=== PATIENT | male | born 1990 | race Caucasian/White ===

== ENCOUNTER 2023-05-10 21:20 | Emergency (ER) | payer SELFPAY ==
[2023-05-10 21:22] VITALS: BP 118/74; PULSE 89; RESP 18; TEMP 36.7; O2SAT 97; BMI 24.6
--- NOTE | 2023-05-10 22:37 | EDS_ITS ---
HPI History of Present Illness Chief Complaint: Rash Narrative Narrative: 33-year old male presenting with rash. He states he noted his on his right arm and left arm. Its been going on since Sunday. It is circular in nature. He states initially it was just 1 on the left arm and then he had 1 on the right arm. Noted this on his chest. Its not itchy. Its not painful. Patient notes he has had a mild headache for couple days but he states he gets better with ibuprofen. He states he has been in a swimming pool at a pool constitution party and also swim in a [place] he was walking on the toe bath recently this week as well. He does not know if he has had any tick bites or insect bites. He has not had a fever. He does not have any nausea or vomiting. He is eating and drinking normally. [facility] Medical History Contact with and (suspected) exposure to other viral communicable diseases Neurodermatitis URI (upper respiratory infection) Home Medications doxycycline hyclate 100 mg capsule 100 mg PO BID #20 caps 05/11/23 [Rx Last Taken Unknown] Allergy/AdvReac Type Severity Reaction Status Date / Time grass pollen-perennial rye, Allergy Intermediate Other Verified 05/10/23 21:25 standar Family History Other Diabetes Surgical History History of inguinal hernia repair History of nasal septoplasty History of surgery on lower extremity Social History Smoking Status: Light Smoker (<10/day) ROS ROS ED Constitutional Constitutional ED: Denies chills, fever(s) or sweats Eyes Eyes: Denies blurry vision or change in vision ENT ENT ED: Denies ear pain or sore throat Cardiovascular Cardiovascular: Denies chest pain, palpitations or racing heartbeat Respiratory/Chest Respiratory/Chest: Denies cough, dyspnea or sputum Gastrointestinal Gastrointestinal: Denies abdominal pain, constipation, diarrhea, nausea or vomiting Genitourinary Genitourinary ED: Denies dysuria, hematuria or urinary frequency Musculoskeletal Musculoskeletal: Denies arthralgias, myalgias or neck pain Integumentary Reports rash; Denies abscess or Abrasions Neurologic Neurologic: Reports headache(s); Denies paresthesias or weakness Psychiatric Psychiatric: Denies anxiety, depression, suicidal ideation or suicidal thoughts Endocrine Endocrinology: Denies polydipsia or polyuria EXAM Physical Exam Const Vital Signs: 05/10/23 21:22 Temperature 98.0 F Temperature Source Temporal Pulse Rate 89 Respiratory Rate 18 Blood Pressure 118/74 Blood Pressure Mean 88 Pulse Ox 97 Oxygen Delivery Method Room Air Positive well nourished General Appearance ED: NAD HEENT Reports moist mucous membranes Eyes PERRL Neck no lymphadenopathy Resp normal respiratory effort and clear to auscultation bilaterally Cardio regular rate and regular rhythm GI normal to inspection, nondistended, normoactive bowel sounds Neuro oriented x3 and CN's II-XII intact bilaterally Sensorium / Orientation: alert Motor Exam: strength 5/5 throughout Psych mental status grossly normal Skin Skin Narrative: Circular hive-like rash noted on the upper right chest wall, right arm over the biceps and left arm over the forearm. Nontender. No induration. No warmth. MDM MDM MDM Narrative Medical decision making narrative: Patient presenting with rash which does look somewhat urticarial although its not pruritic in nature and its not tender. Is no evidence of cellulitis. There is some concern for tickborne illness given the patient's mild headache and fatigue. I did obtain lab work and a CBC and CMP are unremarkable. Given patient's concern I will start him on a course of doxycycline. Return precautions were discussed. Impression: 1. Dermatitis Lab Data Labs: Laboratory Results - last 24 hr 05/10/23 22:41 WBC 7.3 RBC 4.56 L Hgb 13.6 Hct 41.0 MCV 89.9 MCH 29.8 MCHC 33.2 RDW Std Deviation 41.0 RDW Coeff of Benedicto 12.3 Plt Count 358 MPV 9.8 Immature Gran % (Auto) 0.300 Neut % (Auto) 72.9 H Lymph % (Auto) 15.0 L Navarro % (Auto) 9.7 Eos % (Auto) 1.8 Baso % (Auto) 0.3 Absolute Neuts (auto) 5.4 Absolute Lymphs (auto) 1.10 Nucleated RBC % 0 Sodium 139 Potassium 3.4 L Chloride 105 Carbon Dioxide 28.0 Anion Gap 6 BUN 19 H Creatinine 1.22 Estim Creat Clear Calc 92.76 Est GFR (MDRD) Af Amer 87 Est GFR (MDRD) Non-Af 72 BUN/Creatinine Ratio 15.6 Glucose 92 Calcium 8.9 Total Bilirubin 0.30 AST 15 ALT 30 Alkaline Phosphatase 96 Total Protein 7.6 Albumin 3.6 Globulin 4.0 Albumin/Globulin Ratio 0.9 Discharge Plan Triage Chief Complaint: Rash ED Provider: Glenn Cuevas Dx/Rx/DC Orders Instructions: ED Erythema Prescriptions: New doxycycline hyclate 100 mg capsule 100 mg PO BID Qty: 20 0RF Primary Care Provider: Care Physician,No Primary Referrals: Care Physician,No Primary [Primary Care Provider] - Disposition Disposition: Home, Self Care
[2023-05-10 22:47] LABS: Hemoglobin 13.6 g/dL (13.0-16.5); Mean Corp Hgb Conc 33.2 g/dL (32-36); Mean Corpuscular Hgb 29.8 pg (27.0-32.0); Mean Corpuscular Volume 89.9 fL (80-94); Platelet Count 358 K/mm3 (150-450); RBC Distribution Width CV 12.3 % (11.6-14.6); Red Blood Count 4.56 M/mm3 (4.6-6.2); White Blood Count 7.3 K/mm3 (4.4-11.0)
[2023-05-10 22:48] LABS: Absolute Neutrophil Count 5.4 X10^3/uL (2.0-7.7); Basophil# 0.02 X10^3/uL; Basophil% 0.3 % (0-1); Eosinophil# 0.13 X10^3/uL; Eosinophils% 1.8 % (0-5); Mean Platelet Vol. 9.8 fl (6.2-12.0); Monocyte# 0.71 X10^3/uL; Monocyte% 9.7 % (0-10); NRBC Flagged by Analyzer 0 % (0-5); Neutrophil # 5.35 X10^3/uL (2.7-7.7); Neutrophil % 72.9 % (47-70)
[2023-05-10 23:10] LABS: ALB/GLOB Ratio 0.9 RATIO (0.9-2.4); AST(SGOT) 15 U/L (15-37); Alanine Aminotransfer ALT/SGPT 30 U/L (16-61); Albumin, Serum 3.6 g/dL (3.2-5.0); Alkaline Phosphatase 96 U/L (45-117); Anion Gap 6 (5-15); BUN 19 mg/dL (7-18); BUN/Creat Ratio 15.6 RATIO (10-20); Calcium,Total 8.9 mg/dL (8.5-10.1); Chloride 105 mmol/L (98-107); Creatinine, Serum 1.22 mg/dL (0.70-1.30); EST Glomerular Filtration Rate 72 mL/min (>60); Est Glom Filt Rate - Afr Amer 87 mL/min (>60); Estimated Creatinine Clearance 92.76 ml/min; Glucose 92 mg/dL (74-106); Potassium 3.4 mmol/L (3.5-5.1); Protein, Total 7.6 g/dL (6.4-8.2); Sodium Level 139 mmol/L (136-145)
[2023-05-11] MEDS: Doxycycline 100 MG CAPSULE PO (01:33)
== END 2023-05-11 01:37 | disposition home or self-care (01) ==
PROVIDERS: Emergency Provider Student in an Organized Health Care Education/Training Program; Visit Provider Student in an Organized Health Care Education/Training Program
DX: L30.9 Dermatitis, unspecified (principal); F17.200 Nicotine dependence, unspecified, uncomplicated
CPT/HCPCS: 80053; 85025; 99284

== ENCOUNTER → 2023-11-26 | Outpatient (CLI) | payer SELFPAY ==
--- NOTE | 2023-11-26 14:45 | MRI_ITS ---
STUDY: MRI LUMBAR SPINE WITHOUT CONTRAST REASON FOR EXAM: Male, 33 years old. pain, lbp, hips and leg pain TECHNIQUE: Standardized fat and water weighted pulse sequences were obtained in the sagittal and axial planes. COMPARISON: Lumbar spine radiograph November 19, 2023 FINDINGS: T12-L1: Normal endplates. Normal disc height, hydration and morphology. Normal bilateral facet joints. Normal central canal and bilateral lateral recesses. Normal bilateral intervertebral neural foramina. Normal lumbar lordosis. There is no substantial scoliosis. Normal conus medullaris that terminates at the L1-2. L1-2: Normal endplates. Normal disc height, hydration and morphology. Normal bilateral facet joints. Normal central canal and bilateral lateral recesses. Normal bilateral intervertebral neural foramina. L2-3: Normal endplates. Normal disc height, hydration and morphology. Normal bilateral facet joints. Normal central canal and bilateral lateral recesses. Normal bilateral intervertebral neural foramina. L3-4: Normal endplates. Normal disc height, hydration and morphology. Normal bilateral facet joints. Normal central canal and bilateral lateral recesses. Normal bilateral intervertebral neural foramina. L4-5: Moderate broad-based posterior disc protrusion causing moderate narrowing of the neural foramina and trefoil type narrowing of the thecal sac. L5-S1: Normal endplates. Normal disc height, hydration and morphology. Normal bilateral facet joints. Normal central canal and bilateral lateral recesses. Normal bilateral intervertebral neural foramina. Normal visualized sacral ala. Normal visualized paraspinous soft tissue structures. MRI/Spine Lumbar (Routine) IMPRESSION: Moderate disc protrusion and bilateral neural foraminal narrowing at L4-5 Electronically Signed: Wilman Jacques MD at 23:34 EST ,
== END | disposition home or self-care (01) ==
LOC: MRI 14:24
PROVIDERS: PCP Orthopaedic Surgery; Referring Provider Orthopaedic Surgery; Visit Provider Orthopaedic Surgery
DX: M51.26 Other intervertebral disc displacement, lumbar region (principal)
CPT/HCPCS: 72148

== ENCOUNTER 2024-04-01 13:51 | Emergency (ER) | payer SELFPAY ==
[2024-04-01 13:51] VITALS: BP 128/80; PULSE 68; RESP 14; TEMP 36.6; O2SAT 99; BMI 24.1
--- NOTE | 2024-04-01 14:13 | CT_ITS ---
STUDY: CT ABDOMEN AND PELVIS WITHOUT CONTRAST REASON FOR EXAM: Male, 34 years old. Left flank pain. History of prior inguinal hernia repair. RADIATION DOSAGE (If Supplied By Facility): CTDIvol = ( 7.31 ) mGy, DLP = ( 397.84 ) mGycm TECHNIQUE: Transaxial images were obtained from the dome of the diaphragm to the symphysis pubis without oral contrast, and without intravenous contrast. Sagittal and coronal images were reconstructed. Individualized dose optimization techniques were used for this CT. COMPARISON: None. FINDINGS: The visualized lung bases are unremarkable. The visualized portions of the heart are within normal limits. Normal liver. Normal gallbladder and extrahepatic biliary system. Normal spleen. There is a 6.2 mm calcification in the head of the pancreas. Normal bilateral adrenal glands. 1.5 mm calculus in the midpole calyx of the right kidney. There is a punctate calculus in the midpole calyx of the left kidney. Normal visualized stomach. Normal small intestine. Normal colon. The appendix is visualized and appears normal. Normal abdominal aorta. Normal inferior vena cava. Normal retroperitoneum. Normal urinary bladder. Normal abdominal wall. Loss of the normal lumbar lordosis. CT/Abdomen/Pelvis without Cont IMPRESSION: Tiny bilateral nonobstructive intrarenal calculi. Focal calcification in the head of the pancreas. Electronically Signed: Jasiel Haney MD at 15:06 EDT ,
[2024-04-01 14:30] LABS: Absolute Lymphocyte Count 1.12 X10^3/uL (0.83-4.51); Absolute Neutrophil Count 5.3 X10^3/uL (2.0-7.7); Basophil# 0.04 X10^3/uL; Basophil% 0.6 % (0-1); Eosinophil# 0.08 X10^3/uL; Eosinophils% 1.1 % (0-5); Hematocrit 41.6 % (40-54); Hemoglobin 13.9 g/dL (13.0-16.5); Lymphocyte # 1.12 X10^3/ul (0.83-4.51); Lymphocyte % 15.5 % (19-41); Mean Corp Hgb Conc 33.4 g/dL (32-36); Mean Corpuscular Hgb 29.3 pg (27.0-32.0); Mean Corpuscular Volume 87.8 fL (80-94); Mean Platelet Vol. 10.3 fl (6.2-12.0); Monocyte# 0.63 X10^3/uL; Monocyte% 8.7 % (0-10); NRBC Flagged by Analyzer 0 % (0-5); Neutrophil # 5.33 X10^3/uL (2.7-7.7); Neutrophil % 73.8 % (47-70); Platelet Count 279 K/mm3 (150-450); RBC Distribution Width CV 12.5 % (11.6-14.6); RBC Distribution Width SD 40.2 fl (35.1-43.9); Red Blood Count 4.74 M/mm3 (4.6-6.2); White Blood Count 7.2 K/mm3 (4.4-11.0)
[2024-04-01 14:45] LABS: Anion Gap 6 (5-15); BUN 20 mg/dL (7-18); BUN/Creat Ratio 17.2 RATIO (10-20); Calcium,Total 8.9 mg/dL (8.5-10.1); Chloride 103 mmol/L (98-107); Creatinine, Serum 1.16 mg/dL (0.70-1.30); EST Glomerular Filtration Rate 76 mL/min (>60); Est Glom Filt Rate - Afr Amer 92 mL/min (>60); Estimated Creatinine Clearance 96.63 ml/min; Glucose 86 mg/dL (74-106); Potassium 3.7 mmol/L (3.5-5.1); Sodium Level 136 mmol/L (136-145)
[2024-04-01 15:51] VITALS: BP 128/79; PULSE 64; RESP 18; O2SAT 98
--- NOTE | 2024-04-01 16:10 | EDS_ITS ---
HPI History of Present Illness Chief Complaint: Flank Pain [facility] Medical History (Updated 04/01/24 @ 16:[address] Ami Villarreal MD) Hematuria Left upper quadrant pain Mid back pain on left side Contact with and (suspected) exposure to other viral communicable diseases URI (upper respiratory infection) Neurodermatitis Home Medications ?Medication ?Instructions ?Recorded ?Last Taken ?Type hydrocodone-acetaminophen 5-325mg 1 tab PO Q6H PRN PRN Pain 3 days 04/01/24 Unknown Rx 5mg-325mg #10 TABLETS hydrocortisone 2.5 % topical cream applic topical TID PRN 04/01/24 Unknown History prednisone 20 mg tablet mg PO 04/01/24 Unknown History Allergy/AdvReac Type Severity Reaction Status Date / Time grass pollen-perennial rye, Allergy Intermediate Other Verified 04/01/24 13:52 standar Family History Other Diabetes Surgical History History of surgery on lower extremity History of nasal septoplasty History of inguinal hernia repair Social History Smoking Status: Light Smoker (<10/day) EXAM Physical Exam Const Vital Signs: 04/01/24 13:51 04/01/24 15:51 Temperature 98 F Temperature Source Temporal Pulse Rate 68 64 Respiratory Rate 14 18 Blood Pressure 128/80 H 128/79 H Blood Pressure Mean 96 95 Pulse Ox 99 98 Oxygen Delivery Method Room Air Room Air [facility] Lab Data Labs: Laboratory Results - last 24 hr 04/01/24 14:20 WBC 7.2 RBC 4.74 Hgb 13.9 Hct 41.6 MCV 87.8 MCH 29.3 MCHC 33.4 RDW Std Deviation 40.2 RDW Coeff of Benedicto 12.5 Plt Count 279 MPV 10.3 Immature Gran % (Auto) 0.300 Neut % (Auto) 73.8 H Lymph % (Auto) 15.5 L Sibley % (Auto) 8.7 Eos % (Auto) 1.1 Baso % (Auto) 0.6 Absolute Neuts (auto) 5.3 Absolute Lymphs (auto) 1.12 Nucleated RBC % 0 Sodium 136 Potassium 3.7 Chloride 103 Carbon Dioxide 27.0 Anion Gap 6 BUN 20 H Creatinine 1.16 Estim Creat Clear Calc 96.63 Est GFR (MDRD) Af Amer 92 Est GFR (MDRD) Non-Af 76 BUN/Creatinine Ratio 17.2 Glucose 86 Calcium 8.9 Radiography Diagnostic Testing: Clinical Impression(s) from Imaging Studies Abdomen/Pelvis CT 04/01/24 14:13 IMPRESSION: Tiny bilateral nonobstructive intrarenal calculi. Focal calcification in the head of the pancreas. Electronically Signed: Jasiel Haney MD at 15:06 EDT , Discharge Plan Triage Chief Complaint: Flank Pain ED Provider: Ami Villarreal Dx/Rx/DC Orders Clinical Impression: Shingles Instructions: ED Shingles (Herpes Zoster) Prescriptions: New hydrocodone-acetaminophen 5-325 mg tablet 1 tab PO Q6H PRN PRN (Reason: Pain) 3 Days Qty: 10 0RF No Action hydrocortisone 2.5 % cream topical TID PRN prednisone 20 mg tablet PO Primary Care Provider: Care Physician,No Primary Referrals: Carson Vides DO [Med Staff - Inspector Repairer] - 1-2 Weeks Care Physician,No Primary [Primary Care Provider] - Print Language: Lithuanian Disposition Disposition: Home, Self Care
[2024-04-01 16:20] VITALS: BP 131/76; PULSE 64; RESP 18; TEMP 36.4; O2SAT 99
== END 2024-04-01 16:21 | disposition home or self-care (01) ==
PROVIDERS: Emergency Provider Emergency Medicine; Visit Provider Emergency Medicine
DX: B02.9 Zoster without complications (principal); F17.200 Nicotine dependence, unspecified, uncomplicated
CPT/HCPCS: 74176; 80048; 85025; 99283

== ENCOUNTER → 2024-04-01 | Outpatient (CLI) | payer SELFPAY ==
[2024-04-01 17:48] LABS: Bacteria 0 SEEN /hpf (None Seen); Mucous, Urine 0 SEEN /hpf (<or=2+); Squamous Epithelial Cells - UA 0 SEEN /hpf (0-5); White Blood Cells 0 SEEN /hpf (0-5)
[2024-04-01 17:59] LABS: Color, Urine Yellow (Yellow); Glucose, Dipstick Normal (Normal); Ketone-Dipstick Negative (Negative); Leukocyte Esterase-Dipstick Negative /ul (Negative); Nitrite-Dipstick Negative (Negative); Occult Blood-Urine 150 /ul (Negative); Protein-Dipstick 15 mg/dl (Negative); Specific Gravity, Urine 1.015 (1.002-1.030); Urine Bilirubin Dipstick Negative (Negative); Urine Clarity Clear (Clear); Urine Urobilinogen Normal (Normal)
[2024-04-01 18:10] LABS: Red Blood Cells-Urine 0-5 SEEN /hpf (0-5)
== END | disposition home or self-care (01) ==
PROVIDERS: Visit Provider Physician Assistant
DX: R30.0 Dysuria (principal)
CPT/HCPCS: 81001; 87086

== ENCOUNTER → 2024-07-18 | Outpatient (CLI) | payer SELFPAY ==
[2024-07-18 14:24] LABS: Squamous Epithelial Cells - UA 0 SEEN /hpf (0-5); White Blood Cells 0 SEEN /hpf (0-5)
[2024-07-18 16:26] LABS: Absolute Lymphocyte Count 0.95 X10^3/uL (0.83-4.51); Absolute Neutrophil Count 4.7 X10^3/uL (2.0-7.7); Basophil# 0.04 X10^3/uL; Basophil% 0.6 % (0-1); Eosinophil# 0.19 X10^3/uL; Eosinophils% 2.9 % (0-5); Hematocrit 42.2 % (40-54); Hemoglobin 14.2 g/dL (13.0-16.5); Lymphocyte # 0.95 X10^3/ul (0.83-4.51); Lymphocyte % 14.7 % (19-41); Mean Corp Hgb Conc 33.6 g/dL (32-36); Mean Corpuscular Hgb 30.5 pg (27.0-32.0); Mean Corpuscular Volume 90.6 fL (80-94); Mean Platelet Vol. 10.9 fl (6.2-12.0); Monocyte# 0.55 X10^3/uL; Monocyte% 8.5 % (0-10); NRBC Flagged by Analyzer 0 % (0-5); Neutrophil # 4.73 X10^3/uL (2.7-7.7); Platelet Count 311 K/mm3 (150-450); RBC Distribution Width CV 13.1 % (11.6-14.6); RBC Distribution Width SD 42.7 fl (35.1-43.9); Red Blood Count 4.66 M/mm3 (4.6-6.2); White Blood Count 6.5 K/mm3 (4.4-11.0)
[2024-07-18 16:34] LABS: Color, Urine Yellow (Yellow); Glucose, Dipstick Normal (Normal); Ketone-Dipstick Negative (Negative); Leukocyte Esterase-Dipstick Negative /ul (Negative); Nitrite-Dipstick Negative (Negative); Occult Blood-Urine 50 /ul (Negative); Protein-Dipstick Negative (Negative); Urine Bilirubin Dipstick Negative (Negative); Urine Clarity Sl. Cloudy (Clear); Urine Urobilinogen Normal (Normal)
[2024-07-18 16:41] LABS: Bacteria 1+ /hpf (None Seen); Mucous, Urine 1+ /hpf (<or=2+); Red Blood Cells-Urine 0-5 SEEN /hpf (0-5)
[2024-07-18 16:50] LABS: ALB/GLOB Ratio 1.2 RATIO (0.9-2.4); AST(SGOT) 16 U/L (15-37); Alanine Aminotransfer ALT/SGPT 29 U/L (16-61); Albumin, Serum 4.2 g/dL (3.2-5.0); Alkaline Phosphatase 76 U/L (45-117); Anion Gap 9 (5-15); BUN 13 mg/dL (7-18); BUN/Creat Ratio 11.4 RATIO (10-20); Calcium,Total 9.6 mg/dL (8.5-10.1); Chloride 107 mmol/L (98-107); Cholesterol 225 mg/dL (200); Creatinine, Serum 1.14 mg/dL (0.70-1.30); EST Glomerular Filtration Rate 77 mL/min (>60); Est Glom Filt Rate - Afr Amer 93 mL/min (>60); Ferritin 267 ng/mL (26-388); Globulin 3.5 g/dL (2.2-4.2); Glucose 86 mg/dL (74-106); High Density Lipoprotein 50 mg/dL; Iron 88 ug/dL (65-175); Iron Binding Capacity,Total 345 ug/dL (250-450); PSA,Total - Annual Screen 0.86 ng/mL (0.00-4.00); Potassium 3.9 mmol/L (3.5-5.1); Protein, Total 7.7 g/dL (6.4-8.2); Sodium Level 141 mmol/L (136-145); T4 Free Direct 1.06 ng/dL (0.76-1.46); Thyroid Stim Hormone (TSH) 0.599 uIU/mL (0.358-3.740); Triglycerides 187 mg/dL; Very Low Density Lipoprotein 37 mg/dL (5-40)
[2024-07-18 16:51] LABS: Hemoglobin A1c 5.3 % (3.8-5.6)
[2024-07-25 04:08] LABS: Beef <0.10 kU/L (Class 0); Chocolate <0.10 kU/L (Class 0); Codfish <0.10 kU/L (Class 0); Corn <0.10 kU/L (Class 0); Egg, Whole <0.10 kU/L (Class 0); Milk (Cow) <0.10 kU/L (Class 0); Mussels <0.10 kU/L (Class 0); Peanut <0.10 kU/L (Class 0); Pork <0.10 kU/L (Class 0); Salmon <0.10 kU/L (Class 0); Shrimp <0.10 kU/L (Class 0); Soybean <0.10 kU/L (Class 0); Tuna <0.10 kU/L (Class 0); Wheat <0.10 kU/L (Class 0)
== END | disposition home or self-care (01) ==
LOC: BIMLAB 14:18
PROVIDERS: Referring Provider Nurse Practitioner; Visit Provider Nurse Practitioner
DX: Z00.00 Encounter for general adult medical examination without abnormal findings (principal); G25.81 Restless legs syndrome; R35.89 Other polyuria; R19.7 Diarrhea, unspecified
CPT/HCPCS: 36415; 80053; 80061; 81001; 82728; 83036; 83540; 83550; 83735; 84153; 84439; 84443; 85025; 86003; 86005; G0103

== ENCOUNTER → 2024-07-21 | Outpatient (CLI) | payer SELFPAY ==
[2024-07-25 06:10] LABS: Calprotectin, Stool 107 ug/g (0-120)
== END | disposition home or self-care (01) ==
PROVIDERS: Referring Provider Nurse Practitioner; Visit Provider Nurse Practitioner
DX: K58.9 Irritable bowel syndrome, unspecified (principal); R19.7 Diarrhea, unspecified
CPT/HCPCS: 82274; 83993; 87506

== ENCOUNTER 2024-10-27 11:00 | Outpatient (RCR) | payer SELFPAY ==
--- NOTE | 2024-10-16 18:59 | HP.PTEVAL ---
Patient's Visit Information Visit Information Visit Information: KAEL ALLAN is a 34 year old M referred to Physical Therapy by Dr. Fabian Armstrong MD with a diagnosis of Lumbar spine discogenic pain. Date of Evaluation: 10/16/24 Physical Therapist: Anthony Blackburn, PT, ATC Visit Plan Frequency: 2x /Week Duration: 2 Weeks Plan: Postural edu, REIL, core stab ex's, and HEP Subjective Subjective: Pt reports he has had LBP for approximately 1 year. Pt reports his pain had an insidious onset in nature. 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 Pt believes this may have been the cause. Pt reports he had an MRI approximately one year ago and was given the choice of either pain management or surgery. Pt reports he chose pain management which works temporarily. Pt reports he has had 4 injections up to this point. Pt notes he gets pain that radiates down his L LE to the mid calf region. Pt reports prolonged sitting tends to decrease his pain. Pt notes standing and walking helps to decrease his pain. Pt reports sleep difficulty secondary to pain. 2/10 pain while sitting here at rest, 9/10 pain while sitting here at rest. Pt notes he has to take pain meds when his pain is bad. Pain LBP: Pain Intensity (Out of 10): 2 Pain Intensity Range: 9 Objective Objective: Neuro: B LE sensation is WNL to light touch. B patellar reflex= 2/3 MMT: B LE's are 5/5 throughout when compared bilaterally ROM: Full ROM in the L/S Repeated movements: RFIS 10x3 increased LBP. JUAN NE. REIL 10x2 NE Balance/Special Test Scores Oswestry Low Back Score: 13 Goals Goal 1:: I with HEP Goal Time Frame: 2-4 Weeks Goal 2:: Decrease LBP x 50% to aid with sleep Goal Time Frame: 2-4 Weeks Goal 3:: Decrease L LE radiculopathy x 50% to aid with work requirements Goal Time Frame: 2-4 Weeks Rehabilitation Potential Physical Therapy Diagnosis: Pt has LBP, L le radiculopathy, and intolerance for prolonged sitting secondary to L/S disc derangement Rehabilitation Potential: Good Anticipated Interventions Patient/Client Instruction: Educate patient on: Condition and Plan of Care Therapeutic Exercise to Include: Strength training, Endurance training, Postural training, Dynamic Lumbar Stabilization and Lala Exercises For the Purpose of:: To decrease pain, To improve muscle performance and motor function and To increase tolerance to activity/condition/position Text: Thank you for the opportunity to evaluate your patient. For Medicare and Medicare HMO plans, please review the plan of care and approve it. It will need to be FAXED BACK to us at [phone] for Medicare purposes. For Medicare only, by signing this I certify the plan of care. Please let me know if there are questions or concerns regarding this plan of care. Physician Signature: Date:
--- NOTE | 2024-12-15 12:51 | HP.PT.NRP ---
Patient Information Patient Information: KAEL ALLAN was seen in my office for initial evaluation on 10/16/24. The following Plan of Care was established for this patient: POC Established Initial Frequency: 2x /Week Initial Duration: 2 Weeks Anticipated Interventions Patient/Client Instruction: Educate patient on: Condition and Plan of Care Therapeutic Exercise to Include: Strength training, Endurance training, Postural training, Dynamic Lumbar Stabilization and Lala Exercises For the Purpose of:: To decrease pain, To improve muscle performance and motor function and To increase tolerance to activity/condition/position Last Seen Last Seen: This patient was last seen in our office . Pertinent comments regarding their Physical therapy will appear below: Pt has not returned for physical therapy for greater than 30 days and is discontinued at this time. At this point I will be discontinuing this patient from physical therapy. I would be happy to see this patient again in the future if found appropriate by the physician. Thank you! Anthony Blackburn, PT, ATC Balance/Gait/Functional tests Balance/Special Test Scores Oswestry Low Back Score: 13
== END 2024-10-27 19:00 | disposition home or self-care (01) ==
LOC: PT 11:00
PROVIDERS: Referring Provider Orthopaedic Surgery Orthopaedic Surgery of the Spine; Visit Provider Orthopaedic Surgery Orthopaedic Surgery of the Spine
DX: M51.362 Other intervertebral disc degeneration, lumbar region with discogenic back pain and lower extremity pain (principal)
CPT/HCPCS: 97110; 97161

== ENCOUNTER → 2025-01-05 | Outpatient (CLI) | payer SELFPAY ==
--- NOTE | 2025-01-05 18:28 | MRI_ITS ---
PROCEDURE: SPINE LUMBAR (ROUTINE) REASON FOR EXAM: Pain. TECHNIQUE: Multi sequence multi planar MRI of the lumbar spine was performed without IV contrast. COMPARISON: MRI 11/26/2023. The report is not available for review at the time of dictation. FINDINGS: Vertebral body heights are preserved. Similar straightening of the normal lumbar lordosis. Unremarkable marrow signal. Normal positioning of the conus medullaris at the superior L2 endplate. Unremarkable noncontrast appearance of the cauda equina. L1-2: Unremarkable. L2-3: Trace disc protrusions in the bilateral foraminal/lateral regions. No significant spinal canal or foraminal stenosis. L3-4: Mild diffuse disc bulging. No significant spinal canal or foraminal stenosis. L4-5: Mild disc desiccation. Diffuse disc bulging. Tiny left paracentral annular fissure more conspicuous than on the prior exam. Mild focal spinal canal stenosis. Very mild bilateral foraminal stenosis. Mild bilateral lateral recess stenosis. Mild facet arthropathy. L5-S1: Mild diffuse disc bulging. No significant spinal canal or foraminal stenosis. Mild facet arthropathy. Other: None. MRI/Spine Lumbar (Routine) IMPRESSION: 1. Overall mild lower lumbar spondylosis as detailed. No significant spinal ca nal or foraminal stenosis identified. 2. Additional description as above. Reading Location: [id number]
== END | disposition home or self-care (01) ==
LOC: MRI 16:08
PROVIDERS: Referring Provider Orthopaedic Surgery Orthopaedic Surgery of the Spine; Visit Provider Orthopaedic Surgery Orthopaedic Surgery of the Spine
DX: M47.896 Other spondylosis, lumbar region (principal)
CPT/HCPCS: 72148

== ENCOUNTER 2025-02-16 12:00 | Outpatient (RCR) | payer SELFPAY ==
--- NOTE | 2024-12-16 15:27 | HP.PTEVAL_ITS ---
Patient's Visit Information Visit Information Visit Information: KAEL ALLAN is a 34 year old M referred to Physical Therapy by Dr. Tobin Wisdom DO with a diagnosis of meralgia paresthetica of L LE and L hip stiffness.. Date of Evaluation: 12/16/24 Physical Therapist: Constantin Smith DPT Visit Plan Frequency: 1x/Week Duration: 6 Weeks Plan: 1) L hip mobs including: distraction, lateral glide with IR motions, prone extension with PAs 2) glute and core strengthening. Subjective Subjective: Pt. is here today for his initial evaluation with diagnosis of meralgia paresthetica of L LE and L hip stiffness. Pt. 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 Pt. is now having L anterior thigh pain at times especially with prolonged sitting. Pt. reports relief with standing, but not instantly. He reports having occasional sharp pain with random movement stressing his L hip. Pt. reports no issues currently. Pt. does report increased tightness in his L hip mostly in the front. He likes to skii, play volleyball and does some body wt. exercises weekly or every other week. Pt. is hopeful to reduce symptoms in order to get reduce symptoms with prolonged sitting, Pain L hip: Pain Intensity (Out of 10): 0 Pain Intensity Range: 0 and 4 Objective Objective: POSTURE: Pt. has normal posture in stance. Pt. has equal iliac crest heights. Pt. has normal IR/ER positioning in stance. [place]PA[place]ON: Pt. has no symptoms with palpation of psoas, TFL, glute med or adductors. NEURO: Pt. has normal sensation in BLEs. Pt. is able to rise on heels and toes without issues. ROM: L hip: flexion 115deg increase anterior hip, IR 15deg increase NW anterior hip, ER 88deg NE, good HS length, good rectus femoris length. Pt. did experience some symptoms with end range flexion and IR motions. LUMBAR SPINE: flexion min loss sligth posterior leg pain, ext min loss NE, rotation nil loss bilat NE of anterior hip. MMT: Pt. has symmetrical strength of BLEs except hip extensors, and IR motions. Core strength: fair. GAIT: normal. SQUAT: fairly normal, slight anterior translation. Special Tests L/S Slump test left side: Negative L/S Slump test right side: Negative L/S Left Straight Leg Raise: Negative L/S Right Straight Leg Raise: Negative L Hip Scour: Negative L Hip CAREN - Intraarticular Pathology: Negative L Hip FADDIR - Labrum: Positive L Hip Lukas - IT Band: Negative Balance/Special Test Scores Lower Extremity Functional Score: 63 Goals Goal 1:: LTG: Pt. to be I with HEP. Goal Time Frame: 4-6 Weeks Goal 2:: LTG: Pt. to have increased L hip ROM to full without reports of c atching or symptoms. Goal Time Frame: 4-6 Weeks Goal 3:: LTG: pt. to have increased core and L hip strength to 5/5 throughout. Goal Time Frame: 4-6 Weeks Goal 4:: LTG: Pt. to be able to sit for 1+ hour without increase in L thigh paresthesia. Goal Time Frame: 4-6 Weeks Rehabilitation Potential Physical Therapy Diagnosis: PT. has signs and symptoms consistent with meralgia paresthetica of L LE and L hip stiffness.. Pt. has marked end range L hip stiffness and had + response with mobilization with IR and with extension. He does have some glute and IR weakness as well. Pt. would benefit from PT to work on the above limitations. Rehabilitation Potential: Excellent Anticipated Interventions Patient/Client Instruction: Educate patient on: Condition, Plan of Care, Risk Factors and Benefits of Fitness Program For the Purpose of:: To improve decision making, To facilitate caregiver knowledge, To improve self management, To prevent re-injury, To improve ability to perform tasks related to life management and To improve tolerance to ADL's Therapeutic Exercise to Include: Strength training, Power training, Postural training, Flexibilty training, Passive ROM and Active ROM For the Purpose of:: To decrease pain, To increase ROM, To improve nutrient delivery to tissue, To increase oxygenation perfusion, To improve muscle performance and motor function and To improve ability to perform ADL's Manual Therapy Techniques to Include: Mobilization For the Purpose of:: To decrease pain, To decrease swelling/inflammation, To increase ROM, To improve nutrient delivery to tissue and To improve muscle performance and motor function Text: Thank you for the opportunity to evaluate your patient. For Medicare and Medicare HMO plans, please review the plan of care and approve it. It will need to be FAXED BACK to us at [phone] for Medicare purposes. For Medicare only, by signing this I certify the plan of care. Please let me know if there are questions or concerns regarding this plan of care. Physician Signature: Date:
--- NOTE | 2025-02-16 12:47 | HP.PTREVAL ---
Re-Evaluation Intro: Dr. Tobin Wisdom, DO, It has been my pleasure to treat KAEL ALLAN over the last 7 visits for meralgia paresthetica of L LE and L hip stiffness.. Please see the progress note below for an update on the physical therapy plan of care! Subjective Subjective: Pt. reports overall doing well. Pt. reports no pain currently. Pt. is going to [place] later this week. Objective Objective/Function: Gagan is overall doing much better. Pt. reports having occasional symptoms, but not severe. Pt. has a good handle with all of his exercises and will be DC from PT today. He is no longer having any issues. He has close to full L hip and lumbar spine ROM. Pt. has great strength throughout core and B hips. He is going to continue with his end range stretching and progressive strengthening. Pt. will be DC from PT today. Plan Plan Plan: DC from PT Balance/Gait/Functional tests Balance/Special Test Scores Lower Extremity Functional Score: 80 Goals Goals Goal 1:: LTG: Pt. to be I with HEP. Goal Time Frame: 4-6 Weeks Goal Progress: Goal Met Goal 2:: LTG: Pt. to have increased L hip ROM to full without reports of catching or symptoms. Goal Time Frame: 4-6 Weeks Goal Progress: Goal Met Goal 3:: LTG: pt. to have increased core and L hip strength to 5/5 throughout. Goal Time Frame: 4-6 Weeks Goal Progress: Goal Met Goal 4:: LTG: Pt. to be able to sit for 1+ hour without increase in L thigh paresthesia. Goal Time Frame: 4-6 Weeks Goal Progress: Goal Met Anticipated Interventions Anticipated Interventions Patient/Client Instruction: Educate patient on: Condition, Plan of Care, Risk Factors and Benefits of Fitness Program For the Purpose of:: To improve decision making, To facilitate caregiver knowledge, To improve self management, To prevent re-injury, To improve ability to perform tasks related to life management and To improve tolerance to ADL's Therapeutic Exercise to Include: Strength training, Power training, Postural training, Flexibilty training, Passive ROM and Active ROM For the Purpose of:: To decrease pain, To increase ROM, To improve nutrient delivery to tissue, To increase oxygenation perfusion, To improve muscle performance and motor function and To improve ability to perform ADL's Manual Therapy Techniques to Include: Mobilization For the Purpose of:: To decrease pain, To decrease swelling/inflammation, To increase ROM, To improve nutrient delivery to tissue and To improve muscle performance and motor function Re-Evaluation Ending Re-evaluation ending: Please do not hesitate to contact me at [phone] by phone or if you have questions or concerns regarding this new plan of care! Sincerely, BREANNE LanT
== END 2025-02-16 19:00 | disposition home or self-care (01) ==
LOC: PT 12:00
PROVIDERS: Referring Provider Orthopaedic Surgery; Visit Provider Orthopaedic Surgery
DX: G57.10 Meralgia paresthetica, unspecified lower limb (principal); M25.659 Stiffness of unspecified hip, not elsewhere classified; M76.899 Other specified enthesopathies of unspecified lower limb, excluding foot
CPT/HCPCS: 97110; 97140; 97161